=== PATIENT | male | born 1995 | race Caucasian/White ===

== ENCOUNTER 2021-04-22 23:43 | Emergency (ER) | payer OTHER ==
[2021-04-23] MEDS ORDERED: IBUPROFEN800 MG PO (03:57)
[2021-04-23] MEDS ORDERED: OFLOXACIN5 M1 EARLF (03:57)
[2021-04-23] MEDS ORDERED: NORCO 5-325 TA1 EACH PO (03:57)
== END 2021-04-23 04:08 | disposition home or self-care (01) ==
LOC: FER 23:43
DX: T16.2XXA Foreign body in left ear, initial encounter (principal); X58.XXXA Exposure to other specified factors, initial encounter